=== PATIENT | male | born 1960 | race Caucasian/White ===

== ENCOUNTER → 2020-04-27 | Outpatient (CLI) | payer OTHER ==
--- NOTE | 2020-04-27 11:37 | KCIC ---
EXAM: Lumbar spine MRI without contrast. HISTORY: Lower back pain. Right-sided sciatica. TECHNIQUE: Multiplanar, multisequence magnetic resonance imaging of the lumbar spine was performed without contrast. COMPARISON: None. FINDINGS: There is mild lumbar scoliosis. There is minimal retrolisthesis of L2 on L3 and L4 on L5, measuring 2 mm. There is endplate remodeling at multiple levels. There are multiple small endplate Schmorl's nodes. There is a hemangioma within L2. No suspicious osseous lesion is seen. The conus terminates at L1. There is a tiny incidental cyst within the lower pole the left kidney. No follow-up is recommended for simple cysts. At T12-L1, there is a shallow right paracentral disc protrusion with minimal superior extrusion superimposed on a disc bulge and endplate remodeling. There is no stenosis. At L1-L2, there is no stenosis. At L2-L3, there is a disc bulge and endplate remodeling. There is mild central canal stenosis. At L3-L4, there is a disc bulge and endplate remodeling. There is mild bilateral foraminal stenosis. At L4-L5, there is a broad-based posterior disc protrusion with 6 mm right paracentral predominant inferior extrusion superimposed on a disc bulge and endplate remodeling. There is mild left facet arthropathy. There is mild to moderate right greater than left foraminal stenosis. There is moderate central canal stenosis. At L5-S1, there is no stenosis. IMPRESSION: 1. Multilevel degenerative change involving the lumbar spine, described in detail above. This is associated with mild central canal stenosis at L2-L3, mild bilateral foraminal stenosis at L3-L4, and yolk-yy-ixjlmfye right greater than left foraminal and moderate central canal stenosis at L4-L5. 2. No acute osseous finding. Electronically signed by: Eve Galan MD (04/27/2020 11:34 AM) [id number]
== END | disposition home or self-care (01) ==
LOC: KCIC MRI 10:12
PROVIDERS: ATTEND Physician Assistant Medical
DX: M47.816 Spondylosis without myelopathy or radiculopathy, lumbar region (principal); M43.16 Spondylolisthesis, lumbar region; M41.86 Other forms of scoliosis, lumbar region; M51.46 Schmorl's nodes, lumbar region; D18.09 Hemangioma of other sites; N28.1 Cyst of kidney, acquired; M48.061 Spinal stenosis, lumbar region without neurogenic claudication
CPT/HCPCS: 72148

== ENCOUNTER → 2020-08-29 | Outpatient (CLI) | payer OTHER ==
[~2020-08-29] MED LIST: AMIT100T PO; CARI250T9 PO; MONT10TA49 PO; MULT-121 PO; OMEP40CA45 PO; ONDA-84 PO; OXYC1TAB19 PO; OXYM15TA PO; SIMV40TA18 PO
[2020-08-29 15:41] LABS: BASO # 0.1 x10^3/uL (0.0-0.2); BASO % 1 % (0-3); EOS % 0 % (0-3); HEMATOCRIT 42.3 % (39.0-53.0); HEMOGLOBIN 14.2 g/dL (13.0-17.5); LYMPH # 2.6 x10^3/uL (1.0-4.8); LYMPH % 26 % (24-48); MEAN CORPUSCULAR HEMOGLOBIN 29 pg (25-35); MEAN CORPUSCULAR HGB CONC 33 g/dL (31-37); MEAN CORPUSCULAR VOLUME 87 fL (79-100); MONO # 0.7 x10^3/uL (0.0-1.1); MONO % 7 % (0-9); NEUT # 6.4 x10^3/uL (1.8-7.7); NEUT % 66 % (31-73); PLATELET COUNT 467 x10^3/uL (140-400); RED BLOOD COUNT 4.87 x10^6/uL (4.30-5.70); RED CELL DISTRIBUTION WIDTH 12.6 % (11.5-14.5); WHITE BLOOD COUNT 9.8 x10^3/uL (4.0-11.0)
[2020-08-29 16:15] LABS: ALBUMIN 3.8 g/dL (3.4-5.0); ALBUMIN/GLOBULIN RATIO 0.9 (1.0-1.7); CALCIUM 9.5 mg/dL (8.5-10.1); CREATININE 0.8 mg/dL (0.7-1.3); GFR 98.6; POTASSIUM 3.6 mmol/L (3.5-5.1); TOTAL BILIRUBIN 0.2 mg/dL (0.2-1.0); TOTAL PROTEIN 8.1 g/dL (6.4-8.2)
== END ==
LOC: SURGPAT 14:26
PROVIDERS: ATTEND Neurological Surgery
DX: Z01.818 Encounter for other preprocedural examination (principal); M48.062 Spinal stenosis, lumbar region with neurogenic claudication; M51.16 Intervertebral disc disorders with radiculopathy, lumbar region; M54.5 Low back pain
CPT/HCPCS: 36415; 80053; 85025; 87641

== ENCOUNTER → 2020-09-05 | Outpatient (CLI) | payer OTHER ==
[~2020-09-05] MED LIST changes: -OMEP40CA45 PO; +OMEP40CA7 PO
== END ==
LOC: LAB 13:21
PROVIDERS: ATTEND Neurological Surgery
DX: Z01.812 Encounter for preprocedural laboratory examination (principal); M48.061 Spinal stenosis, lumbar region without neurogenic claudication; Z20.828 Contact with and (suspected) exposure to other viral communicable diseases
CPT/HCPCS: U0003

== ENCOUNTER 2020-09-08 08:26 | Day surgery (SDC) | payer OTHER ==
--- NOTE | 2020-09-07 12:49 | HP ---
ADMIT DATE: 09/08/2020 DATE OF ADMISSION AND SURGERY: 09/08/2020. HISTORY OF PRESENT ILLNESS: The patient is a pleasant 60-year-old man who is having difficulty with low back pain and numbness in both of his legs, right greater than left. He has been falling recently. The problem began a few years ago, but became much worse in March after heavy lifting. He rates his pain 7/10. Standing increases his pain. He is more comfortable sitting. He is taking Percocet and oxymorphone to help with his pain. PAST MEDICAL HISTORY: Cancer, headaches, cervical injury, radiation shingles. CURRENT MEDICATIONS: Amitriptyline, omeprazole, oxymorphone, oxycodone, Singulair, ondansetron, simvastatin, and vitamin D. PAST SURGICAL HISTORY: Cervical fusion in 2000, trigger finger operation in 2016, multiple esophageal procedures, bilateral shoulder surgery, right knee surgery. FAMILY HISTORY: Cancer, diabetes, hypertension, migraine headaches. SOCIAL HISTORY: Retired, , former smoker. ALLERGIES: COMPAZINE. REVIEW OF SYSTEMS: A 12-point review of systems was performed and is noncontributory except that mentioned above. PHYSICAL EXAMINATION: GENERAL: Alert, pleasant, in no acute distress. HEAD: Normocephalic, atraumatic. SKIN: Warm and dry. MUSCULOSKELETAL: Lumbar paraspinal muscle bulk is normal, restricted range of motion of the lumbar spine, jiwq-om-isiizieh tenderness of the lower lumbar spine with palpation, normal range of motion of the lower extremities bilaterally. EXTREMITIES: No clubbing, cyanosis or edema. NEUROLOGIC: Alert and oriented x 3, normal recent and remote memory. Strength is 5/5 in the lower extremities bilaterally. Sensory was intact to light touch in lower extremities bilaterally except decreased sensation in the L5 distribution of his left foot. Reflexes were present and symmetric in the lower extremities bilaterally. Positive straight leg raising on the right. Normal gait. IMAGING: I reviewed his lumbar MRI scan. On that study, there are multilevel degenerative changes. There is a broadbased posterior disk protrusion with 6 mm right central inferior extrusion. There is moderate right foraminal stenosis and moderate canal stenosis at L4-L5. ASSESSMENT AND PLAN: I believe his symptoms are related to the problems at L4-L5. He has not improved with time and conservative measures. I recommended a right direct laminectomy/microdiskectomy at L4-L5. I spoke with him about the surgery including the rationale, technique and risks involved as well as the expected postoperative course. He understands and would like to proceed. We will make arrangements. CHANG MONTANA MD DR: MARYSOL/cady JOB#: [id number] / [id number] MIGUEL
[~2020-09-08] VITALS: Ht 177.8 cm; Wt 89.4 kg
[~2020-09-08 08:26] MED LIST changes: +BACITRACIN 50,000 UNIT in IV NORMAL SALINE 1000ML BAG 1,000 ML IRR ONE; +GELATIN SPONGE SIZE 100. ONE; +HYDROmorphone 2 MG/ML VIAL IV PRN; +IV RINGERS,LACTATED 1000ML 1,000 ML IV SCH; +KETOROLAC 60 MG/2 ML VIAL. ONE; +LIDOCAINE 1% PF 2 ML VIAL. ID PRN; +LIDOCAINE 1%/EPI 1:100,000 20 ML VIAL. ONE; +MORPHINE SULFATE 2 MG/ML VIAL. IV PRN; +OMEP40CA45 PO; -OMEP40CA7 PO; +ONDANSETRON PF 4 MG/2 ML VIAL. IV PRN; -OXYC1TAB19 PO; +PROCHLORPERAZINE 10 MG/2 ML VIAL. IV PRN; +THROMBIN TOPICAL 20,000 UNIT SPRAY.SYRN KIT TP ONE; +fentaNYL PF VIAL 100 MCG/2 ML VIAL IV PRN
[2020-09-08] MEDS ORDERED: OXYC1TAB19 PO (09:00)
[2020-09-08] MEDS ORDERED: MIDAZOLAM HCL/PF 2 MG/2 ML VIAL. IV ONE (09:15)
[2020-09-08] MEDS ORDERED: MIDAZOLAM HCL/PF 2 MG/2 ML VIAL. ONE ×2 (09:26→09:47)
[2020-09-08] MEDS ORDERED: PROPOFOL 100 ML IV ONE (09:45)
[2020-09-08] MEDS ORDERED: fentaNYL PF VIAL 100 MCG/2 ML VIAL ONE ×2 (09:47→13:44)
[2020-09-08] MEDS ORDERED: ROCURONIUM 50 MG/5 ML VIAL. ONE (09:47)
[2020-09-08] MEDS ORDERED: REMIFENTANIL 2 MG VIAL. IV ONE (09:47)
[2020-09-08] MEDS ORDERED: DESFLURANE > 120 MINUTES IH ONE (09:47)
[2020-09-08] MEDS ORDERED: ONDANSETRON PF 4 MG/2 ML VIAL. ONE (09:48)
[2020-09-08] MEDS ORDERED: PHENYLEPHRINE 10 MG/ML VIAL. ONE (09:48)
[2020-09-08] MEDS ORDERED: PROPOFOL 10 MG/ML (20ML) VIAL. IV ONE (09:48)
[2020-09-08] MEDS ORDERED: LIDOCAINE 2% PF 5 ML VIAL. ONE (09:48)
[2020-09-08] MEDS ORDERED: 0.9 % SODIUM CHLORIDE 20 ML VIAL. IJ ONE ×2 (09:51)
[2020-09-08] MEDS ORDERED: SCOPOLAMINE 1.5MG PATCH. TD SCH (10:00)
[2020-09-08] MEDS ORDERED: GLYCOPYRROLATE 1 MG/5 ML VIAL. ONE (12:53)
[2020-09-08] MEDS ORDERED: NEOSTIGMINE METHYLSULFATE 5 MG/5 ML SYRINGE. ONE (12:53)
--- NOTE | 2020-09-08 13:11 | DISCH ---
DISCHARGE INSTRUCTIONS Condition on Discharge Condition on Discharge: Stable Activity After Discharge Activity Instructions for Disc: Activity as tolerated, Avoid exertion Other activity instructions: no driving for a week Bathing Instructions: Shower-keep dressing dry, No Tub Bath until see Lifting Instructions after Dis: No heavy lifting, No pulling or pushing, Do not lift >10 pounds Diet after Discharge Additional Diet Restrictions: resume home diet Wound Incision Care Wound/Incision Care: Ice to area for comfort Other wound/incision instructi: may remove dressing in 48 hurs if dry then may shower, no soaking Contacting the after DC Call your doctor for: Concerns you may have Follow-Up Follow up with: Dr. Montana's nurse in 2 weeks [phone] CHANG MONTANA MD Sep 08, 2020 13:11
--- NOTE | 2020-09-08 13:25 | OP ---
DATE OF SURGERY: 09/08/2020 PREOPERATIVE DIAGNOSES: Herniated lumbar disc, L4-5, right, with lateral recess and moderate canal stenosis, L4-L5. POSTOPERATIVE DIAGNOSES: Herniated lumbar disc, L4-5, right, with lateral recess and moderate canal stenosis, L4-L5. OPERATION PERFORMED: Hemilaminotomy microdiscectomy L4-L5 with right direct laminectomy. The operation was done with EMG monitoring, SSEP monitoring, fluoroscopy, microscopic dissection. SURGEON: Miki Montana M.D. EXTERNAL GRINDER TENDER: CHERELLE Mosley assisted with the surgery. She assisted with the exposure, microdiscectomy, as well as the closure. OPERATIVE INDICATIONS: The patient is a pleasant 60-year-old man who developed intractable back and right more than left leg pain which failed conservative measures. On imaging studies, he had the above-mentioned findings and I recommended lumbar microsurgery. I did discuss the surgery and the risks. I discussed the technique with him. He understood and wished to go ahead. DESCRIPTION OF PROCEDURE: Following general endotracheal anesthesia, the patient was positioned prone on the Jose table. Lumbar region prepped and draped in standard fashion. ROSA hose and AV impulse boots were applied for DVT prophylaxis. A microscope was draped. Fluoroscopy was draped and brought into the field. Monitoring was established. Ancef 2 grams was given less than 1 hour prior to initiation of surgery. Using fluoroscopic guidance, a generous hemilaminotomy was performed. I peeled away thickened ligamentum flavum, and worked diligently and exposed the dural sac and the exiting L5 root performing a generous partial foraminotomy. I gently retracted the root medially. There was a subligamentous inferiorly displaced disc fragment and I incised the ligament and began to remove this disc piecemeal. It was largely scarred and this portion of the surgery was tedious. I worked superiorly and entered into the disc space and worked to remove disc material from within the disc space and as I worked, the area became very well decompressed. I then tilted the patient away from me and drilled across the midline with a high speed air drill through the microscope using microscopic technique and then trimmed with the micro Kerrison and trimmed away the ligamentum flavum, crossing the midline and performing a laminectomy. At this point then I felt that I had an excellent decompression. I irrigated with antibiotic solution and obtained perfect hemostasis. I closed the wound with absorbable suture. The skin was closed with 4-0 subcuticular stitch. MIKI MONTANA MD DR: LEESA/cady JOB#: [id number] / [id number] MIGUEL
[2020-09-08] MEDS: fentaNYL PF VIAL 100 MCG/2 ML VIAL IV PRN ×2 (13:47→14:07)
[2020-09-08] MEDS ORDERED: oxyCODONE/APAP 7.5/325 1 TAB TABLET PO ONE ×2 (14:15)
[2020-09-08 14:35] VITALS: BP 148/88
--- NOTE | 2020-09-14 09:22 | PATHOLOGY ---
[facility] Accession Number: [id number] . 01 Material submitted: . vertebral column - LUMBAR DISC AND DECOMPRESSION . 02 Diagnosis: Segments of fibrocartilaginous and fibroadipose tissue and bone, lumbar decompression: - Degenerative changes of fibrocartilaginous tissue. (JPM:solitario; 09/13/2020) QMS 09/13/2020 1357 Local . 02 Comment: There is no evidence of an acute inflammatory process or malignancy. (JPM:solitario; 09/13/2020) . 02 Electronically signed: . Adam Munoz MD, Pathologist NPI- [id number] . 01 Gross description: . The specimen is received in formalin, labeled "Adam Gracia, lumbar disc and decompression" and consists of pink-rowell soft tissue and bone measuring 4.5 x 3.0 x 0.9 cm. A sales representative marine supplies portion is submitted in A1 following decalcification. (SDY; 09/11/2020) SYU/SYU 09/11/2020 1001 Local . 02 Pathologist provided ICD-10: M51.36 . 02 CPT . 653741, [id number] Specimen Comment: A courtesy copy of this report has been sent to [phone] Specimen Comment: Report sent to Specimen Comment: A duplicate report has been generated due to demographic updates. Performed at: 01 [facility] [address], [place] [id number] MD Cristofer Spence MD Phone: [phone] Performed at: 02 [facility] [address] [place], [place] [id number] MD Adam Munoz MD Phone: [phone]
== END 2020-09-08 15:00 | disposition home or self-care (01) ==
LOC: SURG 08:26
PROVIDERS: ATTEND Neurological Surgery
DX: M51.16 Intervertebral disc disorders with radiculopathy, lumbar region (principal); M48.062 Spinal stenosis, lumbar region with neurogenic claudication; E78.00 Pure hypercholesterolemia, unspecified; M19.90 Unspecified osteoarthritis, unspecified site; K21.9 Gastro-esophageal reflux disease without esophagitis; Z87.891 Personal history of nicotine dependence; Z79.899 Other long term (current) drug therapy; Z98.890 Other specified postprocedural states; Z88.8 Allergy status to other drugs, medicaments and biological substances
CPT/HCPCS: 63047; 76000; 88304; 88311; 97116; 97162; 97530; J0690; J1885; J2250; J2370; J2405; J2704; J2710; J3010; J3490; J7030; J7120